=== PATIENT | female | born 1950 | race Caucasian/White ===

== ENCOUNTER 2016-11-19 10:29 | Day surgery (SDC) | payer BC ==
[2016-11-06 13:28] LABS: HEMATOCRIT 44.1 % (36.0-48.0)
--- NOTE | ~2016-11-19 | OP ---
Record Of Operation [facility] [address] [place]. [address] NAME: DEEJAY LAWRENCE : 46 STATUS : [facility]#: [id number] AGE: 65 ADM/REG DATE : 11/19/16 MR#: [id number] REPORT SERV DATE: 11/26/16 DICTATED BY: Marissa JANG DATE: 11/26/16 REPORT STATUS : Draft TRANSCRIBED BY: SINGH DATE: 11/26/16 DATE OF PROCEDURE: 11/19/2016 PREOPERATIVE DIAGNOSES: 1. Basal cell carcinoma of the left upper forehead-scalp. 2. Mohs defect of the left upper forehead-scalp secondary to Mohs micrographic surgical excision of basal cell carcinoma. POSTOPERATIVE DIAGNOSES: 1. Basal cell carcinoma of the left upper forehead-scalp. 2. Mohs defect of the left upper forehead-scalp secondary to Mohs micrographic surgical excision of basal cell carcinoma. PROCEDURE: 1. Surgical excisional preparation of left upper forehead-scalp defect. 2. Reconstruction of large scalp defect with rotation flap closure. FINDINGS: Left upper forehead and small portion of the right frontal scalp full-thickness defect down to the level of the pericranium, measuring 2.9 cm tall and 3.6 cm wide. INDICATIONS: This 65-year-old female had a biopsy-proven basal cell carcinoma, removed by Mohs micrographic surgical excision this morning and now presents for reconstruction. At a separate consultation, the patient was evaluated and I discussed the pros and cons, alternatives, benefits, risks, limitations, and complications (including, but not limited to, reaction to suture, scarring, distortion of eyebrow, recurrence of tumor, infection, inability to close the defect, and allowing this to heal by secondary intention, anesthesia reactions, imponderables). The defect of the left upper forehead following her Mohs surgery is very large, and I have shown a photograph of the defect to her daughter and to her . She did not want to see the defect. I explained that this will be a difficult closure. She understands and wishes to proceed. Proper consent obtained. No guarantees expressed. DESCRIPTION OF PROCEDURE: She was taken into the operating room and given general oral endotracheal anesthesia in the supine position. The table was turned. The dressing on her forehead was removed. The hemostasis was excellent from the Dermatology office. The entire face was prepped and the scalp prepped with Hibiclens and saline followed by isopropyl alcohol. None of these solutions got in her eyes. Sterile drapes were applied including an under buttocks drape underneath her head for irrigation of the head after completion of the surgery. The defect was large and measured as stated above. The beveled edges of the defect were surgically excisionally prepared with a #15 blade and forceps and scissors. This was performed after the edges had been injected with 1% Xylocaine with 1:100,000 epinephrine. A circumferential block with 0.5% Marcaine with 1:200,000 epinephrine was performed across the brows and glabella across the low portion of the mandaen, extending just above the ear and Record Of Operation [address] [place]. [address] NAME: DEEJAY LAWRENCE : 46 STATUS : [facility] PAT#: [id number] AGE: 65 ADM/REG DATE : 11/19/16 MR#: [id number] REPORT SERV DATE: 11/26/16 DICTATED BY: Marissa JANG DATE: 11/26/16 REPORT STATUS : Draft TRANSCRIBED BY: SINGH DATE: 11/26/16 back to the posterior vertex of the scalp. This was to give a postop comfort. I did not want to inject lidocaine or any other injections in the flaps themselves because the closure was going to be extremely tight. Then, a large flap development was accomplished in the subgaleal layer across the forehead to the right lateral forehead and then posteriorly to the distal right parietal scalp and back to the anterior vertex of the scalp and to the left posterior parietal area, over the parietal area and down the left side of the upper forehead and mandaen in the subgaleal layer and then over the level of the temporalis fascia. All this dissection was carried out with the cautery at a low setting in the subgaleal plane for hemostasis and flap elevation except as I got further and further laterally the elevation was done with malleable ribbon retractors in the same plane. The overall elevation of the forehead was 8 cm to the right and 10 cm posteriorly on the right, 10 cm posteriorly on the left, and 5 cm down the left mandaen with great care avoiding the frontal branch of the facial nerve. This gave a total flap elevation of approximately 14 x 10 cm. At this point, the superior aspect of the eyebrow bilaterally were marked and they were symmetrical. These flaps that had been developed were then rotated until I could get the wound closed without distorting the eyebrow. When I adjusted them properly, markings were made for that closure and then these lantigua were lined up and secured deep with 2-0 Vicryl. 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 The deep tissue was closed with 5-0 Vicryl and the skin coapted with 6-0 Prolene. In the area of the maximum tension on the closure, where the 2-0 Vicryl were deep, 5-0 Prolene interrupted sutures were placed in the skin. The left-sided dog-ear deformity was excised into the scalp and the wound closed with stainless steel brooks. Hemostasis had been excellent throughout the procedure and estimated blood loss was 15 mL. At this point, the scalp was rinsed with copious amounts of saline and dried. The skin edges were cleansed with hydrogen peroxide and dried. At this point, Mastisol and Telfa were placed over the wound followed by a circumferential turban type of dressing with fluff, Kerlix, and Coban. She was awakened and extubated and taken to the recovery room in good condition having tolerated the procedure well. Home going instructions included prescription for cephalexin, hydrocodone, and Zofran. She is to remove the pressure dressing in 2 days and then begin baby shampoo daily. She is to use hydrogen peroxide and Q-tips on the incision line if there are scabs. Recheck in the office in 1 week. AMBERLY/SINGH Marissa Jang M.D. Record Of Operation [facility] [address] [place]. [address] NAME: DEEJAY LAWRENCE : 46 STATUS : [facility] PAT#: [id number] AGE: 65 ADM/REG DATE : 11/19/16 MR#: [id number] REPORT SERV DATE: 11/26/16 DICTATED BY: Marissa JANG DATE: 11/26/16 REPORT STATUS : Draft TRANSCRIBED BY: SINGH DATE: 11/26/16 / [id number]
[~2016-11-19 10:29] MED LIST: ASAB PO; EVISTA60 PO; TUMERIC; VITAMIN D1000 UNI1 PO; VITAMINS & HERBS
== END 2016-11-19 18:49 | disposition home or self-care (01) ==
LOC: SDC 10:29
PROVIDERS: Specialist
PROC: 0HX1XZZ Transfer Face Skin, External Approach (ICD-10-PCS; 2016-11-19)
PROC: 0HX0XZZ Transfer Scalp Skin, External Approach (ICD-10-PCS; principal; 2016-11-19 13:45)
DX: C44.41 Basal cell carcinoma of skin of scalp and neck (principal); C44.319 Basal cell carcinoma of skin of other parts of face; F17.210 Nicotine dependence, cigarettes, uncomplicated; Z79.82 Long term (current) use of aspirin; Z79.52 Long term (current) use of systemic steroids; Z79.899 Other long term (current) drug therapy; Z98.890 Other specified postprocedural states
CPT/HCPCS: 80048; 85014; 85018; 93005; A9270-GY; J0690; J2370; J2405; J2710; J3010